=== PATIENT | male | born 1950 | race African-American/Black ===

== ENCOUNTER 2020-04-05 11:39 | Inpatient (IN) | payer MEDICARE, MEDICAID ==
[~2020-04-05] VITALS: Ht 188 cm; Wt 103.0 kg
--- NOTE | 2020-04-05 14:30 | NUR ---
NURSE NOTES: Received patient from admitting. Patient is direct admit from home. Belongings list completed. Patient has $71 that he declined to put in safe. VSS. On room air, no signs of distress or labored breathing. IV inserted, saline locked. Bed in lowest position with call light in reach. Will notify MD of patient's arrival and receive orders.
[2020-04-05 15:02] VITALS: BP 137/90
--- NOTE | 2020-04-05 15:46 | NUR ---
NURSE NOTES: Received orders for Dr. Guadarrama. Will carry out.
--- NOTE | 2020-04-05 15:48 | NUR ---
CASE MANAGEMENT: NOTE CM ATTEMPTED TO PERFORM REVIEW. INSUFFICIENT INFO AVAILABLE AT THIS TIME
--- NOTE | 2020-04-05 15:55 | Consultation ---
History of Present Illness General Date patient seen: Apr 05, 2020 Present Illness HPI 69 year old male with extensive tobacco history who is currently still smoking presented with left neck pain and discomfort. states at first that for a few days he noted left neck swelling but when prompted he extends timeline past a few months. states he was told by pcp to have it evaluated but has decided not to until recently when it became more uncomfortable. no n/v/f/c. voice changes noted for months. pain cramping left neck. no sob. surgery called to evaluate. Allergies: Coded Allergies: No Known Allergies (Unverified , 04/05/20) Patient History History Provided By: Patient, Medical Record, PMD Healthcare decision maker N Resuscitation status Advanced Directive on File Past Medical/Surgical History Past Medical/Surgical History: (1) Mass of left side of neck Review of Systems Review of Symptoms General ROS: no weight loss or fever Psychological ROS: no depression or mood changes, no memory loss Ophthalmic ROS: no visual changes or eye irritation ENT ROS: no nasal congestion, hearing loss, dizziness Allergy and Immunology ROS: no allergic symptoms or urticaria Hematological and Lymphatic ROS: no swollen glands, unusual bleeding or bruising Endocrine ROS: no polyuria, polydipsia, weight changes, temperature intolerance Respiratory ROS: no cough, shortness of breath, or wheezing Cardiovascular ROS: no chest pain or dyspnea on exertion Gastrointestinal ROS: denies abdominal pain, bright red blood in stool. Musculoskeletal ROS: no myalgias or arthralgias Neurological ROS: no TIA or stroke symptoms Dermatological ROS: no new or changing skin lesions, rashes or pruritis Physical Exam Physical Exam General appearance: alert, cooperative, no distress, appears stated age Head: Normocephalic, without obvious abnormality, atraumatic Eyes: conjunctivae/corneas clear. PERRL, EOM's intact. Fundi benign Throat: Lips, mucosa, and tongue normal. Teeth and gums normal Neck: left neck mobile large almost 10cm x 10cm tender, hard. trachea deviated to the right of midline Lungs: clear to auscultation bilaterally Heart: regular rate and rhythm, S1, S2 normal, no murmur, click, rub or gallop Abdomen: soft, non-tender. Bowel sounds normal. No masses, no organomegaly Extremities: extremities normal, atraumatic, no cyanosis or edema Pulses: 2+ and symmetric Skin: Skin color, texture, turgor normal. No rashes or lesions Neurologic: Grossly normal Last 24 Hour Vital Signs Date Time Temp Pulse Resp B/P (MAP) Pulse Ox O2 Delivery O2 Flow Rate FiO2 04/05/20 15:02 98.0 86 20 137/90 (106) 96 Assessment/Plan Problem List: (1) Mass of left side of neck Assessment & Plan: left neck mobile large almost 10cm x 10cm tender, hard. trachea deviated to the right of midline extensive tobacco history and current has noted for months but has not seen care yet now larger and more uncomfortable unfortunately high suspicion for cancer > abscess or infection recommend CT neck respiratory stable currently CT chest as well okay for diet rx as written will follow with recs thank you ICD Codes: R22.1 - Localized swelling, mass and lump, neck SNOMED: [id number] Jah Fraser Apr 05, 2020 15:55
[2020-04-05 16:00] VITALS: BP 158/90
[2020-04-05] MEDS ORDERED: Omnipaque 350 100ml vial INJ PRN (16:00)
[2020-04-05] MEDS ORDERED: LORazepam 1mg tab ORAL PRN (16:00)
[2020-04-05] MEDS ORDERED: Zolpidem 5mg tab ORAL PRN (16:00)
[2020-04-05] MEDS ORDERED: Mylanta II UD 30ml ORAL PRN (16:00)
[2020-04-05] MEDS ORDERED: Omnipaque-300 100ml vial INJ SCH (16:00)
[2020-04-05] MEDS ORDERED: Milk of Magnesia 30ml Ud ORAL PRN (16:00)
[2020-04-05] MEDS ORDERED: Nitroglycerin Subl 0.4mg tab SL PRN (16:00)
[2020-04-05] MEDS ORDERED: DiphenhydrAMINE 25mg Tab ORAL PRN (16:00)
[2020-04-05] MEDS ORDERED: Morphine Sulfate 2mg/ml Inj(IV/IM USE ONLY) IVP PRN (16:00)
--- NOTE | 2020-04-05 16:37 | NUR ---
HAND-OFF: Report given to DOMENIC Sanabria. Patient stable.
--- NOTE | 2020-04-05 16:40 | NUR ---
NURSE NOTES: Received report from Connie RN. Patient is currently sleeping, in no apparent distress, RR even and unlabored. Side rails upx2, bed low and locked, call light within reach.
[2020-04-05 18:05] LABS: BASOPHILS % (AUTO) 1.2 % (0.0-2.0); EOSINOPHILS % (AUTO) 0.8 % (0.0-3.0); HEMATOCRIT 44.8 % (42.0-52.0); HEMOGLOBIN 13.9 G/DL (14.2-18.0); LYMPHOCYTES % (AUTO) 27.5 % (20.0-45.0); MEAN CORPUSCULAR VOLUME 92 FL (80-99); MONOCYTES % (AUTO) 10.1 % (1.0-10.0); NEUTROPHILS % (AUTO) 60.4 % (45.0-75.0); PLATELET COUNT 139 K/UL (150-450); RED CELL DISTRIBUTION WIDTH 15.2 % (11.6-14.8); WHITE BLOOD COUNT 6.3 K/UL (4.8-10.8)
[2020-04-05 18:09] LABS: INR 1.1 (0.9-1.1)
[2020-04-05 18:26] LABS: ANION GAP 7 mmol/L (5-15); BLOOD UREA NITROGEN 15 mg/dL (7-18); CALCIUM 10.9 MG/DL (8.5-10.1); CARBON DIOXIDE 29 MMOL/L (21-32); CHLORIDE 106 MMOL/L (98-107); CHOLESTEROL 140 MG/DL (< 200); CREATININE 1.1 MG/DL (0.55-1.30); HDL CHOLESTEROL 41 MG/DL (40-60); POTASSIUM 3.6 MMOL/L (3.5-5.1); SODIUM 142 MMOL/L (136-145); TRIGLYCERIDES 145 MG/DL (30-150)
--- NOTE | 2020-04-05 19:30 | NUR ---
HAND-OFF: Report given to Petra SHETH. Patient is in stable condition.
--- NOTE | 2020-04-05 19:45 | NUR ---
Pt awake alert and oriented x4 able to make needs known. Pt on room air no acute distress noted. Pt able to make needs known. IV to RFA infusing NS@ 50 ml/hr. Pt able to void with no difficulty. bed in lowest position call light in reach will continue to monitor for treatment and care
[2020-04-05 20:00] VITALS: BP 180/98
--- NOTE | 2020-04-05 20:16 | NUR ---
Pt b/p 180/90 pt c/o of headache and pain to left side of the neck. denies SOB, CP. dizziness or feeling light headed. notified with new orders.
[2020-04-05] MEDS ORDERED: HYDROcodone/Acetamin 10/325 tab ORAL PRN ×2 (20:30→20:45)
[2020-04-05] MEDS: Docusate 100mg cap ORAL SCH (20:53)
[2020-04-05] MEDS: Losartan 50mg tab ORAL SCH (20:59)
[2020-04-05] MEDS: Enoxaparin 40mg Inj SUBQ SCH (21:06)
[2020-04-05] MEDS: NovoLOG Insulin Flexpen SUBQ SCH (22:00)
[2020-04-06] VITALS: BP 179/91
[2020-04-06 04:00] VITALS: BP 155/69
[2020-04-06] MEDS: NovoLOG Insulin Flexpen SUBQ SCH ×4 (06:13→21:00)
--- NOTE | 2020-04-06 06:45 | Consultation ---
DATE OF CONSULTATION: 04/05/2020 CARDIOLOGY CONSULTATION CONSULTING PHYSICIAN: Leighton Nunez MD. REQUESTING PHYSICIAN: Pepe Guadarrama MD. REASON FOR CONSULTATION: Left neck mass, preoperative evaluation for possible excision. HISTORY OF PRESENT ILLNESS: This is a 69-year-old male has a several months of increasing left neck pain and discomfort with swelling and was noted to have a mass by Dr. Guadarrama. He has been increasingly short of breath and congested, hospitalization has been initiated. Possible excision of the mass is planned. I have been asked to address perioperative risk. PAST MEDICAL HISTORY: Hypertensive heart disease, degenerative disk disease, COPD, obesity, and hyperlipidemia. ALLERGIES: None. MEDICATIONS: Reviewed. SOCIAL HISTORY: Greater than 22-bjjj-cexy smoker, actively smokes at this time. Social alcohol. No substance abuse. FAMILY HISTORY: Noncontributory. REVIEW OF SYSTEMS: No fevers or chills. No history of COVID-19 exposure. No exertional chest pain. No history of flow-limiting coronary disease. No history of cardiac arrhythmias. His most recent echocardiogram as an outpatient revealed normal ejection fraction with concentric hypertrophy. There is no change in bowel habits. No history of seizure or stroke. No history of diabetes or thyroid impairment. PHYSICAL EXAMINATION: VITAL SIGNS: Blood pressure 180/98, heart rate 83, respiratory rate 24, afebrile. HEENT: Conjunctivae are pink. Oropharynx clear. Mucous membranes moist. NECK: Jugular venous pressure difficult to assess. Supple with decreased range of motion. Palpable mass approximately 10 x 10 cm on the left, firm and mobile with tracheal deviation to the right. LUNGS: With diminished breath sounds. No wheezing. CARDIAC: Regular rhythm and rate. Normal S1, S2 with a fourth heart sound. ABDOMEN: Soft, nontender. EXTREMITIES: No edema. NEUROLOGIC: Nonfocal. LABORATORY AND DIAGNOSTIC DATA: Laboratories reviewed. EKG pending. IMPRESSION: 1. Neck mass, rule out abscess versus cancer. 2. Nicotine abuse. 3. COPD. 4. Hypertensive urgency. PLAN: CT of the neck and chest. Up titration of anti-hypertensive regimen. DVT prophylaxis. Bronchodilators p.r.n. Nicotine patch. Leighton Nunez M.D. DR: BRITNEY JOB#: [id number] CC:
[2020-04-06 07:17] LABS: ALANINE AMINOTRANSFERASE 10 U/L (12-78); ALBUMIN 3.4 G/DL (3.4-5.0); ALBUMIN/GLOBULIN RATIO 1.1 (1.0-2.7); ALKALINE PHOSPHATASE 82 U/L (46-116); ANION GAP 8 mmol/L (5-15); ASPARTATE AMINO TRANSFERASE 14 U/L (15-37); BILIRUBIN,TOTAL 0.6 MG/DL (0.2-1.0); BLOOD UREA NITROGEN 13 mg/dL (7-18); CALCIUM 10.3 MG/DL (8.5-10.1); CARBON DIOXIDE 28 MMOL/L (21-32); CHLORIDE 107 MMOL/L (98-107); CREATININE 0.8 MG/DL (0.55-1.30); POTASSIUM 3.8 MMOL/L (3.5-5.1); SODIUM 143 MMOL/L (136-145)
--- NOTE | 2020-04-06 07:39 | NUR ---
NURSE NOTES: Received report from DOMENIC Lambert. Patient A&Ox4. On nasal cannula 2L/min. No signs of distress or labored breathing. IV intact, patent, and infusing IV fluids. Bed in lowest position with call light in reach. Will continue with plan of care.
--- NOTE | 2020-04-06 07:44 | NUR ---
Nurses notes Report to Connie SHETH
[2020-04-06 08:00] VITALS: BP 152/89
--- NOTE | 2020-04-06 09:36 | Diagnostic Imaging Report ---
EXAM: CT Chest With Intravenous Contrast CLINICAL HISTORY: ABSCESS TECHNIQUE: Axial computed tomography images of the chest with intravenous contrast. CTDI is 23.7 mGy and DLP is 995.3 mGy-cm. One or more of the following dose reduction techniques were used: automated exposure control, adjustment of the mA and/or kV according to patient size, use of iterative reconstruction technique. COMPARISON: No relevant prior studies available. FINDINGS: Large necrotic left neck mass will be described in greater detail on the dedicated neck CT report. Minimal stranding of the upper mediastinum. Slight extension to the upper mediastinal prevascular space. Question whether this is a known malignancy. There are multiple bilateral pulmonary nodules concerning for metastatic disease. Largest nodules in the right middle and lower lobe measuring 1.2 cm on series 7, image 45. Largest left lung nodule in the left upper lobe measuring 1.1 cm on series 7, image 31. Left lung consolidation. Component of atelectasis as well. Correlate for symptoms of pneumonia. No clear hilar mass to suggest postobstructive phenomena. Trace left pleural effusion. There is also trace pericardial fluid as well as coronary atherosclerosis. No pneumothorax. Suspect a 1.4 cm right adrenal nodule, which would also be concerning for metastasis, though assessment of the adrenals is limited by motion. Cholelithiasis. Multilevel thoracic spondylosis. Lytic cervical spine lesions will also be described in the neck CT report. IMPRESSION: Necrotic left neck mass extending into the upper mediastinum. Please see separately dictated neck CT report for other details, including cervical vertebral involvement. Bilateral pulmonary nodules are suspicious for metastases. Would also question a right adrenal nodule (potential metastasis), but limited assessment due to motion. LLL consolidation suggesting pneumonia. This is not clearly postobstructive. CAD.
[2020-04-06] MEDS: Losartan 50mg tab ORAL SCH (09:48)
--- NOTE | 2020-04-06 09:48 | Diagnostic Imaging Report ---
EXAM: CT Neck With Intravenous Contrast CLINICAL HISTORY: ABSCESS TECHNIQUE: Axial computed tomographic images of the neck with intravenous contrast. CTDI is 23.7 mGy and DLP is 995.3 mGy-cm. One or more of the following dose reduction techniques were used: automated exposure control, adjustment of the mA and/or kV according to patient size, use of iterative reconstruction technique. COMPARISON: No relevant prior studies available. FINDINGS: There is a large mass to the left mid and lower neck and supraclavicular region. Somewhat poorly defined, but measures at least 9 x 8 x 9 cm in greatest transverse, anteroposterior, and craniocaudal dimensions respectively. Internal heterogeneity/necrosis is better illustrated on the chest CT due to the phase of enhancement on that exam. The mass anteriorly displaces the sternocleidomastoid, appearing to infiltrate the muscle inferiorly (again better seen on the chest CT). The common carotid artery is displaced anteriorly and medially, but the caliber of the vessel does not appear compromised. The internal jugular vein is engulfed by the mass, not well-seen. The airway is displaced to right, but demonstrates no significant narrowing/compression. The mass invades the leftward aspects of the C4 and C5 vertebral bodies with destruction of left transverse processes and presumed extension into neural foramina. Correlate for radiculopathy. Behavior of this mass is consistent with malignancy. Presence of pulmonary nodules, presumably metastases, also would indicate malignancy. Left larger than right mastoid effusions. These are not clearly attributable to obstruction by the mass. There are satellite left cervical lymph nodes, concerning for tumor infiltration, however. Carotid atherosclerosis. Dural calcifications overlying visualized portions of the left cerebral hemisphere. Mild mucosal thickening to the right maxillary sinus. Chronic-appearing deformity of the right orbital floor, presumably related to old trauma. Multilevel cervical spondylosis. IMPRESSION: 9 cm left neck mass invading C4 and C5 vertebra, consistent with malignancy. Correlate for radiculopathy as the neural foramina are invaded. Rightward airway displacement without significant narrowing. Engulfment of the left internal jugular vein, likely occluded. Pulmonary nodules are highly suspicious for metastases. Please see separately dictated chest CT report.
[2020-04-06] MEDS: Docusate 100mg cap ORAL SCH ×2 (09:49→21:28)
[2020-04-06] MEDS: Morphine Sulfate 2mg/ml Inj(IV/IM USE ONLY) IVP PRN ×2 (09:57→16:37)
[2020-04-06 12:00] VITALS: BP 155/90
--- NOTE | 2020-04-06 13:59 | Surgery Progress Note ---
Surgery Progress Note Subjective Additional Comments no acute events CT noted comfortable no complaints Objective Last 24 Hour Vital Signs Date Time Temp Pulse Resp B/P (MAP) Pulse Ox O2 Delivery O2 Flow Rate FiO2 04/06/20 09:48 77 152/89 04/06/20 09:48 152/89 04/06/20 08:00 98.3 77 18 152/89 (110) 97 04/06/20 04:00 98.6 88 22 155/69 (97) 97 04/06/20 01:34 179/91 04/06/20 01:33 83 179/91 04/06/20 00:00 97.9 76 22 179/91 (120) 96 04/05/20 21:00 Room Air 04/05/20 20:59 180/98 04/05/20 20:55 180/98 04/05/20 20:00 97.9 83 24 180/98 (125) 94 04/05/20 16:00 97.9 72 20 158/90 (112) 92 04/05/20 15:02 Room Air 04/05/20 15:02 98.0 86 20 137/90 (106) 96 I&O Intake and Output 04/05/20 04/06/20 19:00 07:00 Intake Total 300 ml Output Total 300 ml Balance 300 ml -300 ml Intake Oral 200 ml IV Total 100 ml Output Urine Total 300 ml # Voids 1 1 Dressing: other Wound: other Drains: other Cardiovascular: RSR Respiratory: clear Abdomen: soft, non-tender, present bowel sounds Extremities: no edema, no tenderness, no cyanosis Laboratory Tests Test 04/05/20 17:10 04/06/20 05:30 04/06/20 08:17 White Blood Count 6.3 K/UL (4.8-10.8) Red Blood Count 4.90 M/UL (4.70-6.10) Hemoglobin 13.9 G/DL (14.2-18.0) L Hematocrit 44.8 % (42.0-52.0) Mean Corpuscular Volume 92 FL (80-99) Mean Corpuscular Hemoglobin 28.4 PG (27.0-31.0) Mean Corpuscular Hemoglobin Concent 31.0 G/DL (32.0-36.0) L Red Cell Distribution Width 15.2 % (11.6-14.8) H Platelet Count 139 K/UL (150-450) L Mean Platelet Volume 12.7 FL (6.5-10.1) H Neutrophils (%) (Auto) 60.4 % (45.0-75.0) Lymphocytes (%) (Auto) 27.5 % (20.0-45.0) Monocytes (%) (Auto) 10.1 % (1.0-10.0) H Eosinophils (%) (Auto) 0.8 % (0.0-3.0) Basophils (%) (Auto) 1.2 % (0.0-2.0) Prothrombin Time 11.8 SEC (9.30-11.50) H Prothromb Time International Ratio 1.1 (0.9-1.1) Activated Partial Thromboplast Time 28 SEC (23-33) Sodium Level 142 MMOL/L (136-145) 143 MMOL/L (136-145) Potassium Level 3.6 MMOL/L (3.5-5.1) 3.8 MMOL/L (3.5-5.1) Chloride Level 106 MMOL/L (98-107) 107 MMOL/L (98-107) Carbon Dioxide Level 29 MMOL/L (21-32) 28 MMOL/L (21-32) Anion Gap 7 mmol/L (5-15) 8 mmol/L (5-15) Blood Urea Nitrogen 15 mg/dL (7-18) 13 mg/dL (7-18) Creatinine 1.1 MG/DL (0.55-1.30) 0.8 MG/DL (0.55-1.30) Estimat Glomerular Filtration Rate > 60 mL/min (>60) > 60 mL/min (>60) Glucose Level 109 MG/DL (74-106) H 124 MG/DL (74-106) H Hemoglobin A1c 7.7 % (4.3-6.0) H Calcium Level 10.9 MG/DL (8.5-10.1) H 10.3 MG/DL (8.5-10.1) H Pro-B-Type Natriuretic Peptide 36 pg/mL (0-125) Triglycerides Level 145 MG/DL (30-150) Cholesterol Level 140 MG/DL (< 200) LDL Cholesterol 69 mg/dL (<100) HDL Cholesterol 41 MG/DL (40-60) Cholesterol/HDL Ratio 3.4 (3.3-4.4) Thyroid Stimulating Hormone (TSH) 0.484 uiU/mL (0.358-3.740) Total Bilirubin 0.6 MG/DL (0.2-1.0) Aspartate Amino Transf (AST/SGOT) 14 U/L (15-37) L Alanine Aminotransferase (ALT/SGPT) 10 U/L (12-78) L Alkaline Phosphatase 82 U/L (46-116) Total Protein 6.5 G/DL (6.4-8.2) Albumin 3.4 G/DL (3.4-5.0) Globulin 3.1 g/dL Albumin/Globulin Ratio 1.1 (1.0-2.7) Arterial Blood pH 7.367 (7.350-7.450) Arterial Blood Partial Pressure CO2 49.4 mmHg (35.0-45.0) H Arterial Blood Partial Pressure O2 87.8 mmHg (75.0-100.0) Arterial Blood HCO3 27.7 mmol/L (22.0-26.0) H Arterial Blood Oxygen Saturation 96.4 % (95-100) Arterial Blood Base Excess 1.6 (-2-2) Rob Test Positive Plan Problems: (1) Mass of left side of neck Assessment & Plan: left neck mobile large almost 10cm x 10cm tender, hard. trachea deviated to the right of midline extensive tobacco history and current has noted for months but has not seen care yet now larger and more uncomfortable unfortunately high suspicion for cancer > abscess or infection recommend CT neck respiratory stable currently CT chest as well okay for diet rx as written will follow with recs thank you metastatic cancer will discuss with pcp and patient Large necrotic left neck mass will be described in greater detail on the dedicated neck CT report. Minimal stranding of the upper mediastinum. Slight extension to the upper mediastinal prevascular space. Question whether this is a known malignancy. There are multiple bilateral pulmonary nodules concerning for metastatic disease. Largest nodules in the right middle and lower lobe measuring 1.2 cm on series 7, image 45. Largest left lung nodule in the left upper lobe measuring 1.1 cm on series 7, image 31. Left lung consolidation. Component of atelectasis as well. Correlate for symptoms of pneumonia. No clear hilar mass to suggest postobstructive phenomena. Trace left pleural effusion. There is also trace pericardial fluid as well as coronary atherosclerosis. No pneumothorax. Suspect a 1.4 cm right adrenal nodule, which would also be concerning for metastasis, though assessment of the adrenals is limited by motion. Cholelithiasis. Multilevel thoracic spondylosis. Lytic cervical spine lesions will also be described in the neck CT report. IMPRESSION: Necrotic left neck mass extending into the upper mediastinum. Please see separately dictated neck CT report for other details, including cervical vertebral involvement. Bilateral pulmonary nodules are suspicious for metastases. Would also question a right adrenal nodule (potential metastasis), but limited assessment due to motion. LLL consolidation suggesting pneumonia. This is not clearly postobstructive. There is a large mass to the left mid and lower neck and supraclavicular region. Somewhat poorly defined, but measures at least 9 x 8 x 9 cm in greatest transverse, anteroposterior, and craniocaudal dimensions respectively. Internal heterogeneity/necrosis is better illustrated on the chest CT due to the phase of enhancement on that exam. The mass anteriorly displaces the sternocleidomastoid, appearing to infiltrate the muscle inferiorly (again better seen on the chest CT). The common carotid artery is displaced anteriorly and medially, but the caliber of the vessel does not appear compromised. The internal jugular vein is engulfed by the mass, not well-seen. The airway is displaced to right, but demonstrates no significant narrowing/compression. The mass invades the leftward aspects of the C4 and C5 vertebral bodies with destruction of left transverse processes and presumed extension into neural foramina. Correlate for radiculopathy. Behavior of this mass is consistent with malignancy. Presence of pulmonary nodules, presumably metastases, also would indicate malignancy. Left larger than right mastoid effusions. These are not clearly attributable to obstruction by the mass. There are satellite left cervical lymph nodes, concerning for tumor infiltration, however. Carotid atherosclerosis. Dural calcifications overlying visualized portions of the left cerebral hemisphere. Mild mucosal thickening to the right maxillary sinus. Chronic-appearing deformity of the right orbital floor, presumably related to old trauma. Multilevel cervical spondylosis. IMPRESSION: 9 cm left neck mass invading C4 and C5 vertebra, consistent with malignancy. Correlate for radiculopathy as the neural foramina are invaded. Rightward airway displacement without significant narrowing. Engulfment of the left internal jugular vein, likely occluded. Pulmonary nodules are highly suspicious for metastases. Please see separately dictated chest CT report. Jah Fraser 6, 2020 13:59
--- NOTE | 2020-04-06 14:48 | NUR ---
CASE MANAGEMENT:INITIAL REVIEW 69 YR OLD MALE FROM HOME FOR DIRECT ADMIT CC;NECK PAIN. NECK SWELLING. SI;LEFT NECK MASS. PRE-OP EVAL FOR POSSIBLE EXCISION. 98.0 86 24 180/98 92% ON RA IS;LOVENOX SUBQ D5W IVF ADMITTED TO MED SURG MED SURG STATUS DCP;FROM HOME
[2020-04-06 16:00] VITALS: BP 171/84
--- NOTE | 2020-04-06 16:30 | Consultation ---
DATE OF CONSULTATION: 04/06/2020 PULMONARY CONSULTATION CONSULTING PHYSICIAN: Sarthak Colin MD. REASON FOR CONSULTATION: Shortness of breath, preoperative clearance, COPD. HISTORY OF PRESENT ILLNESS: This is a 69-year-old male with an increasing left neck mass. The patient with increasing shortness of breath and congestion. The patient with possible excision planned. The patient does have underlying history of COPD and I was asked to follow up pre and postoperatively to assist with pulmonary clearance and management. Currently, the patient does complain of mild shortness of breath, but no significant chest tightness. The patient denies sputum production at this time. The patient's medications reviewed and reconciled. The patient is on DVT prophylaxis at present, pain management reviewed as well. PAST MEDICAL HISTORY: Notable for hypertension, hypertensive heart disease, COPD, obesity, hyperlipidemia. MEDICATIONS: Reviewed. ALLERGIES: Reviewed. SOCIAL HISTORY: Greater than 34-xnig-wdsb history. The patient continues to smoke currently. Occasional alcohol use. No substance abuse. No cocaine. FAMILY HISTORY: Noncontributory. REVIEW OF SYSTEMS: All 10 points reviewed and otherwise as above. PHYSICAL EXAMINATION: GENERAL: A well-developed male, comfortable, in no significant distress. VITAL SIGNS: Elevated blood pressure 155/69, pulse 88, respirations 22, sats 97%, temperature 98.6. HEENT: Fairly negative. The patient's extraocular movements are grossly intact. NECK: Supple. No adenopathy. LUNGS: With good air entry and symmetric. CARDIAC: S1, S2. Regular rate and rhythm without murmurs, rubs, or gallops. ABDOMEN: Soft, nontender, nondistended. EXTREMITIES: No cyanosis, clubbing, or edema. NEUROLOGIC: Grossly nonfocal. LABORATORY DATA: Reviewed. CBC fairly negative. Platelets are reduced 139,000. Chemistries noted essentially negative including liver enzymes and cholesterol as well as TSH. IMPRESSION: 1. COPD, clinically stable. 2. Hypertension. 3. Neck mass. 4. Hyperglycemia. 5. Pain. RECOMMENDATION: We will obtain x-ray and an arterial blood gas to assess for acid-base exchange. We will continue to monitor albuterol p.r.n. and we will definitely monitor airway postoperatively, reassess clinically and recommend further and will assist with postoperative care once surgery is planned. Sarthak Colin M.D. DR: RADHA JOB#: [id number] CC:
--- NOTE | 2020-04-06 18:00 | History and Physical Report ---
DATE OF ADMISSION: 04/05/2020 CHIEF COMPLAINT: Left neck mass, shortness of breath. HISTORY OF PRESENT ILLNESS: The patient is a 69-year-old male. He has history of COPD, hypertension, and diabetes. He initially presented to the office several weeks ago for a routine followup. On exam, he was noted to have a left neck mass. The patient was instructed to go to the emergency room and a direct admission bed was arranged, but the patient declined to go. Yesterday, he was agreeable for admission for workup of his mass. In addition, he had worsening shortness of breath and wheezing consistent with COPD exacerbation. He is now directly admitted for further evaluation and care. PAST MEDICAL HISTORY: As above. PAST SURGICAL HISTORY: None. CURRENT MEDICATIONS: Reconciled and reviewed. ALLERGIES: None. FAMILY HISTORY: None. SOCIAL HISTORY: The patient is a long-term smoker and continues to smoke. No alcohol. No drugs. REVIEW OF SYSTEMS: GENERAL: No fevers or chills. HEENT: No headaches or visual changes. CARDIOPULMONARY: No chest pain. Positive shortness of breath and wheezing. GASTROINTESTINAL: No nausea or vomiting. GENITOURINARY: No urgency or frequency. MUSCULOSKELETAL: No joint pain or swelling. NEUROLOGIC: No evidence of seizures. PHYSICAL EXAMINATION: VITAL SIGNS: Temperature 98, pulse 76, respirations 22, blood pressure 179/81. GENERAL: The patient is well developed, in no apparent distress. The patient is awake, alert, and oriented x4. HEENT: The pupils are equal, round, and reactive to light. Oropharynx is clear. Mucous membranes are moist. There is a slightly larger than a golf ball-sized mass in the left submandibular region on the anterior neck. Mass is hard and is nontender. HEART: Regular rate and rhythm without murmurs, rubs, or gallops. LUNGS: Clear to auscultation bilaterally. ABDOMEN: Soft, nontender, and nondistended. EXTREMITIES: Without clubbing, cyanosis, or edema. LABORATORY AND DIAGNOSTIC DATA: White count 6, hemoglobin 13, hematocrit 44. Coags are normal. Platelet count was 139,000. Sodium 142, potassium 3.6, BUN 15, creatinine 1.1. A1c was 7.7. TSH was 0.48. Imaging is pending. ASSESSMENT: This is a 69-year-old male with history of hypertension, COPD, diabetes, admitted with a left neck mass as well as a COPD exacerbation. PLAN: CT scan of the head, neck, and chest with contrast. Cardiology evaluation for assistance with blood pressure management for possible preop clearance in case surgery is needed. Surgical consultation. Hematology/Oncology consultation will also be obtained. The patient will be continued on supplemental oxygen, breathing treatments, and intravenous steroids for COPD exacerbation. Plan of care has been discussed at length with the patient. He is in agreement. Pepe Guadarrama M.D. DR: Dalia JOB#: [id number] CC:
--- NOTE | 2020-04-06 19:05 | NUR ---
NURSE NOTES: Received report from tierra sow. patient is on bed, awake and verbally responsive. denies any pain or discomfort. cannula at 2lpm. no sob. with iv on the right forearm running NS @50ml/hr. uses urinal. reiterated to call and ask for assistance by using call light. call light and light button within easy reach. bed locked and in lowest position. bed alarm on. needs attended and met. provided rest and comfort.will continue plan of care.
--- NOTE | 2020-04-06 19:33 | NUR ---
HAND-OFF: Report given to Mikayla Velasquez RN. Rounds done, patient stable.
[2020-04-06 20:00] VITALS: BP 187/91
[2020-04-06] MEDS: Enoxaparin 40mg Inj SUBQ SCH (21:28)
--- NOTE | 2020-04-06 21:40 | NUR ---
NURSE NOTES: BLOOD PRESSURE OF 187/91 MMHG. NO C/O DIZZINESS OR HEADACHE. CLONIDINE 0.1MG GIVEN ORDERED FOR SBP>160. CHARGE NURSE MADE AWARE.
[2020-04-07] VITALS: BP 165/90
--- NOTE | 2020-04-07 01:00 | Progress Note ---
DATE: 04/06/2020 CARDIOLOGY PROGRESS NOTE SUBJECTIVE: The patient without chest pain or shortness of breath. Neck discomfort persists. No noted stridor per staff. EKG is pending. OBJECTIVE: VITAL SIGNS: Blood pressure 171/84, heart rate 67, respiratory rate 18, and afebrile. NECK: Tracheal deviation unchanged. Palpable neck mass without change. LUNGS: Clear. No wheezing. CARDIAC: Regular. Normal S1, S2 with a fourth heart sound. ABDOMEN: Soft. EXTREMITIES: No edema. LABORATORY AND DIAGNOSTIC DATA: Chemistry panel within normal limits. Glucose 124. Liver function normal. Imaging studies of the neck reveal left neck mass invading cervical vertebra and neural foramina within engulfment of left internal jugular vein, and pulmonary nodules are noted as well. IMPRESSION: Metastatic carcinoma, suspected. PLAN: 1. May need transfer to higher level of care for surgical and diagnostic intervention in view of involvement of jugular vein and cervical disks. 2. Review EKG. 3. Optimize antihypertensive therapy. 4. Continue respiratory hygiene. 5. DVT prophylaxis. 6. We will discuss with consulting staff. Leighton Nunez M.D. DR: Kathy JOB#: [id number] CC:
[2020-04-07 04:00] VITALS: BP 169/89
[2020-04-07] MEDS: Morphine Sulfate 2mg/ml Inj(IV/IM USE ONLY) IVP PRN (04:31)
--- NOTE | 2020-04-07 05:30 | NUR ---
NURSE NOTES: BLOOD PRESSURE OF 169/89 MMHG. NO C/O DIZZINESS OR HEADACHE. CLONIDINE 0.1MG GIVEN ORDERED FOR SBP>160. CHARGE NURSE MADE AWARE.
[2020-04-07] MEDS: NovoLOG Insulin Flexpen SUBQ SCH (05:43)
[2020-04-07 05:59] LABS: BASOPHILS % (AUTO) 0.7 % (0.0-2.0); HEMOGLOBIN 13.6 G/DL (14.2-18.0); LYMPHOCYTES % (AUTO) 24.7 % (20.0-45.0); MEAN CORPUSCULAR VOLUME 85 FL (80-99); MONOCYTES % (AUTO) 10.9 % (1.0-10.0); NEUTROPHILS % (AUTO) 62.7 % (45.0-75.0); PLATELET COUNT 148 K/UL (150-450); RED BLOOD COUNT 4.82 M/UL (4.70-6.10); RED CELL DISTRIBUTION WIDTH 13.1 % (11.6-14.8)
[2020-04-07 06:13] LABS: ANION GAP 6 mmol/L (5-15); BLOOD UREA NITROGEN 11 mg/dL (7-18); CALCIUM 10.3 MG/DL (8.5-10.1); CARBON DIOXIDE 29 MMOL/L (21-32); CHLORIDE 107 MMOL/L (98-107); CREATININE 0.7 MG/DL (0.55-1.30); POTASSIUM 3.9 MMOL/L (3.5-5.1); SODIUM 142 MMOL/L (136-145)
--- NOTE | 2020-04-07 07:22 | NUR ---
HAND-OFF: Report given to tierra espinoza.patient is awake taking breakfast. no sob. plan of care endorsed.
--- NOTE | 2020-04-07 07:30 | NUR ---
NURSE NOTES: Patient is sitting on edge of bed awake and able to verbalize needs. Stable. Denies pain or SOB. Patient instructed to use call light for assistance, verbalized understanding. All safety measures provided, call light within reach. Will continue to monitor.
[2020-04-07 08:00] VITALS: BP 163/78
[2020-04-07 08:42] VITALS: BP 163/78
[2020-04-07] MEDS: Docusate 100mg cap ORAL SCH (08:42)
[2020-04-07] MEDS: Losartan 50mg tab ORAL SCH (08:42)
--- NOTE | 2020-04-07 08:59 | Pulmonology Progress Note ---
Subjective Allergies: Coded Allergies: No Known Allergies (Unverified , 04/05/20) Subjective CT noted likely cancer with mets Objective Last 24 Hour Vital Signs Date Time Temp Pulse Resp B/P (MAP) Pulse Ox O2 Delivery O2 Flow Rate FiO2 04/07/20 08:42 82 163/78 04/07/20 08:42 163/78 04/07/20 05:29 169/89 04/07/20 05:01 98.1 04/07/20 04:00 98.2 68 18 169/89 (115) 98 04/07/20 00:00 98.1 63 18 165/90 (115) 97 04/06/20 21:44 187/91 04/06/20 21:00 Nasal Cannula 2.0 04/06/20 20:00 97.8 61 18 187/91 (123) 97 04/06/20 18:06 67 171/84 04/06/20 16:37 171/84 04/06/20 16:00 98.2 67 18 171/84 (113) 95 04/06/20 12:00 98.6 69 18 155/90 (111) 95 04/06/20 09:48 77 152/89 04/06/20 09:48 152/89 04/06/20 09:00 Nasal Cannula 2.0 Intake and Output 04/06/20 04/07/20 19:00 07:00 Intake Total 1750 ml 2050 ml Output Total 700 ml 1300 ml Balance 1050 ml 750 ml Intake Oral 1200 ml 1500 ml IV Total 550 ml 550 ml Output Urine Total 700 ml 1300 ml # Voids 2 4 Objective GENERAL: A well-developed male, comfortable, in no significant distress. HEENT: Fairly negative. The patient's extraocular movements are grossly intact. NECK: Supple. No adenopathy. neck mass noted LUNGS: With good air entry and symmetric. CARDIAC: S1, S2. Regular rate and rhythm without murmurs, rubs, or gallops. ABDOMEN: Soft, nontender, nondistended. EXTREMITIES: No cyanosis, clubbing, or edema. NEUROLOGIC: Grossly nonfocal. Laboratory Tests 04/07/20 05:45: White Blood Count 6.0, Red Blood Count 4.82, Hemoglobin 13.6L, Hematocrit 41.0L , Mean Corpuscular Volume 85, Mean Corpuscular Hemoglobin 28.2, Mean Corpuscular Hemoglobin Concent 33.2, Red Cell Distribution Width 13.1, Platelet Count 148L, Mean Platelet Volume 10.8H, Neutrophils (%) (Auto) 62.7, Lymphocytes (%) (Auto) 24.7, Monocytes (%) (Auto) 10.9H, Eosinophils (%) (Auto) 1.0, Basophils (%) (Auto) 0.7, Sodium Level 142, Potassium Level 3.9, Chloride Level 107, Carbon Dioxide Level 29, Anion Gap 6, Blood Urea Nitrogen 11, Creatinine 0.7, Estimat Glomerular Filtration Rate > 60, Glucose Level 143H, Calcium Level 10.3H Current Medications Medications (Trade) Dose Ordered Sig/Amanda Route PRN Reason Start Time Stop Time Status Last Admin Dose Admin Acetaminophen (Tylenol) 650 mg Q4H PRN ORAL Temp >100.5 04/05/20 16:00 05/05/20 15:59 Acetaminophen/ Hydrocodone Bitart (Kenly 10/325) 1 tab Q4H PRN ORAL moderate pain 04/05/20 20:45 04/12/20 20:29 04/05/20 20:55 Al Hydroxide/Mg Hydroxide (Mylanta II) 30 ml Q6H PRN ORAL dyspepsia 04/05/20 16:00 05/05/20 15:59 Amlodipine Besylate (Norvasc) 5 mg BID ORAL 04/06/20 09:00 05/06/20 08:59 04/07/20 08:42 Bisacodyl (Dulcolax) 10 mg HSPRN PRN RECTAL Constipation 04/05/20 16:00 07/04/20 15:59 Clonidine HCl (Catapres Tab) 0.1 mg Q4H PRN ORAL For High Blood Pressure 04/05/20 20:30 07/04/20 20:29 04/07/20 05:29 Dextrose (Dextrose 50%) 25 ml Q30M PRN IV Hypoglycemia 04/05/20 16:00 07/04/20 15:59 Dextrose (Dextrose 50%) 50 ml Q30M PRN IV Hypoglycemia 04/05/20 16:00 07/04/20 15:59 Diphenhydramine HCl (Benadryl) 25 mg Q6H PRN ORAL Itching/Pruritis 04/05/20 16:00 05/05/20 15:59 Docusate Sodium (Colace) 100 mg EVERY 12 HOURS ORAL 04/05/20 21:00 05/05/20 20:59 04/07/20 08:42 Enoxaparin Sodium (Lovenox) 40 mg QHS SUBQ 04/05/20 21:00 07/04/20 20:59 04/06/20 21:28 Famotidine (Pepcid) 40 mg DAILY ORAL 04/06/20 09:00 07/05/20 08:59 04/07/20 08:42 Insulin Aspart (NovoLOG) BEFORE MEALS AND HS SUBQ 04/05/20 22:00 07/04/20 21:59 04/07/20 05:43 Iohexol (Omnipaque 350 100ml) 100 ml NOW PRN INJ Radiology Procedure 04/05/20 16:00 04/07/20 15:55 Lorazepam (Ativan) 1 mg Q4H PRN ORAL For Anxiety 04/05/20 16:00 04/12/20 15:59 Losartan Potassium (Cozaar) 50 mg DAILY ORAL 04/05/20 20:45 05/05/20 20:44 04/07/20 08:42 Magnesium Hydroxide (Mom) 30 ml HSPRN PRN ORAL Constipation 04/05/20 16:00 05/05/20 15:59 Morphine Sulfate (Morphine Sulfate) 2 mg Q2H PRN IVP severe pain 04/05/20 20:45 04/12/20 15:59 04/07/20 04:31 Nitroglycerin (Ntg) 0.4 mg Q5M X 3 DOSES PRN SL Prn Chest Pain 04/05/20 16:00 05/05/20 15:59 Ondansetron HCl (Zofran) 4 mg Q6H PRN IVP Nausea & Vomiting 04/05/20 16:00 05/05/20 15:59 Sodium Chloride 1,000 ml @ 50 mls/hr Q20H IVLG 04/05/20 16:55 05/05/20 16:54 04/06/20 12:50 Zolpidem Tartrate (Ambien) 5 mg HSPRN PRN ORAL Insomnia 04/05/20 16:00 04/12/20 15:59 Assessment/Plan Assessment/Plan IMPRESSION: 1. COPD, clinically stable. 2. Hypertension. 3. Neck mass with lung mets 4. Hyperglycemia. 5. Pain. PLAN biopsy needed oncology evaluation respiratory arthur same monitor for airway compromise may need ENT follow up impression, plan, and exam edited and reviewed in detail care discussed with Sarthak Espinoza MD Apr 07, 2020 08:59
--- NOTE | 2020-04-07 10:28 | Diagnostic Imaging Report ---
EXAM: XR Chest, 1 View CLINICAL HISTORY: Shortness of breath TECHNIQUE: Frontal view of the chest. COMPARISON: CT chest obtained earlier the same date FINDINGS: Lungs: Note again made of left lung base consolidation concerning for pneumonia versus atelectasis. Mild elevation of the left hemidiaphragm. Linear atelectasis in the right midlung region. Pleural space: Unremarkable. The costophrenic angles are sharp. No visible pneumothorax. Heart: Unremarkable. No cardiomegaly. Mediastinum: Unremarkable. Bones/joints: Moderate to severe joint space loss in the right glenohumeral joint. Vasculature: Atherosclerotic calcifications are noted within the aortic arch. IMPRESSION: 1. Note again made of left lung base consolidation concerning for pneumonia versus atelectasis. 2. Linear atelectasis in the right midlung region. 3. Bilateral pulmonary nodules identified on CT are not as well seen on chest x-ray. 4. Mild elevation of the left hemidiaphragm.
--- NOTE | 2020-04-07 11:15 | NUR ---
NURSE NOTES: Patient discharged home as ordered. Stable. Denies pain or SOB. Patient was given thorough discharge instructions by RN, patient verbalized understanding. Patient stated that he will follow up with Dr. Guadarrama. Skin is c/d/i. No IV access. Patient was given written discharge instructions, RN went over instructions with patient. Patient has all belongings. Patient stated that he will take bus home. RN assisted patient outside without incident.
--- NOTE | 2020-04-07 18:05 | Surgery Progress Note ---
Surgery Progress Note Subjective Additional Comments care plan discussed with patient and PCP likely mets will need biopsy can do outpt 1. Note again made of left lung base consolidation concerning for pneumonia versus atelectasis. 2. Linear atelectasis in the right midlung region. 3. Bilateral pulmonary nodules identified on CT are not as well seen on chest x-ray. 4. Mild elevation of the left hemidiaphragm. Objective Last 24 Hour Vital Signs Date Time Temp Pulse Resp B/P (MAP) Pulse Ox O2 Delivery O2 Flow Rate FiO2 04/07/20 09:00 Room Air 04/07/20 08:42 82 163/78 04/07/20 08:42 163/78 04/07/20 08:00 98.5 82 20 163/78 (106) 98 04/07/20 05:29 169/89 04/07/20 05:01 98.1 04/07/20 04:00 98.2 68 18 169/89 (115) 98 04/07/20 00:00 98.1 63 18 165/90 (115) 97 04/06/20 21:44 187/91 04/06/20 21:00 Nasal Cannula 2.0 04/06/20 20:00 97.8 61 18 187/91 (123) 97 04/06/20 18:06 67 171/84 I&O Intake and Output 04/06/20 04/07/20 19:00 07:00 Intake Total 1750 ml 2050 ml Output Total 700 ml 1300 ml Balance 1050 ml 750 ml Intake Oral 1200 ml 1500 ml IV Total 550 ml 550 ml Output Urine Total 700 ml 1300 ml # Voids 2 4 Dressing: other Wound: other Drains: other Cardiovascular: RSR Respiratory: decreased breath sounds Abdomen: soft, non-tender, present bowel sounds Extremities: no edema, no tenderness, no cyanosis Laboratory Tests Test 04/07/20 05:45 White Blood Count 6.0 K/UL (4.8-10.8) Red Blood Count 4.82 M/UL (4.70-6.10) Hemoglobin 13.6 G/DL (14.2-18.0) L Hematocrit 41.0 % (42.0-52.0) L Mean Corpuscular Volume 85 FL (80-99) Mean Corpuscular Hemoglobin 28.2 PG (27.0-31.0) Mean Corpuscular Hemoglobin Concent 33.2 G/DL (32.0-36.0) Red Cell Distribution Width 13.1 % (11.6-14.8) Platelet Count 148 K/UL (150-450) L Mean Platelet Volume 10.8 FL (6.5-10.1) H Neutrophils (%) (Auto) 62.7 % (45.0-75.0) Lymphocytes (%) (Auto) 24.7 % (20.0-45.0) Monocytes (%) (Auto) 10.9 % (1.0-10.0) H Eosinophils (%) (Auto) 1.0 % (0.0-3.0) Basophils (%) (Auto) 0.7 % (0.0-2.0) Sodium Level 142 MMOL/L (136-145) Potassium Level 3.9 MMOL/L (3.5-5.1) Chloride Level 107 MMOL/L (98-107) Carbon Dioxide Level 29 MMOL/L (21-32) Anion Gap 6 mmol/L (5-15) Blood Urea Nitrogen 11 mg/dL (7-18) Creatinine 0.7 MG/DL (0.55-1.30) Estimat Glomerular Filtration Rate > 60 mL/min (>60) Glucose Level 143 MG/DL (74-106) H Calcium Level 10.3 MG/DL (8.5-10.1) H Plan Problems: (1) Mass of left side of neck Assessment & Plan: left neck mobile large almost 10cm x 10cm tender, hard. trachea deviated to the right of midline extensive tobacco history and current has noted for months but has not seen care yet now larger and more uncomfortable unfortunately high suspicion for cancer > abscess or infection recommend CT neck respiratory stable currently CT chest as well okay for diet rx as written will follow with recs thank you outpt biiopsy and onc eval metastatic cancer will discuss with pcp and patient Large necrotic left neck mass will be described in greater detail on the dedicated neck CT report. Minimal stranding of the upper mediastinum. Slight extension to the upper mediastinal prevascular space. Question whether this is a known malignancy. There are multiple bilateral pulmonary nodules concerning for metastatic disease. Largest nodules in the right middle and lower lobe measuring 1.2 cm on series 7, image 45. Largest left lung nodule in the left upper lobe measuring 1.1 cm on series 7, image 31. Left lung consolidation. Component of atelectasis as well. Correlate for symptoms of pneumonia. No clear hilar mass to suggest postobstructive phenomena. Trace left pleural effusion. There is also trace pericardial fluid as well as coronary atherosclerosis. No pneumothorax. Suspect a 1.4 cm right adrenal nodule, which would also be concerning for metastasis, though assessment of the adrenals is limited by motion. Cholelithiasis. Multilevel thoracic spondylosis. Lytic cervical spine lesions will also be described in the neck CT report. IMPRESSION: Necrotic left neck mass extending into the upper mediastinum. Please see separately dictated neck CT report for other details, including cervical vertebral involvement. Bilateral pulmonary nodules are suspicious for metastases. Would also question a right adrenal nodule (potential metastasis), but limited assessment due to motion. LLL consolidation suggesting pneumonia. This is not clearly postobstructive. There is a large mass to the left mid and lower neck and supraclavicular region. Somewhat poorly defined, but measures at least 9 x 8 x 9 cm in greatest transverse, anteroposterior, and craniocaudal dimensions respectively. Internal heterogeneity/necrosis is better illustrated on the chest CT due to the phase of enhancement on that exam. The mass anteriorly displaces the sternocleidomastoid, appearing to infiltrate the muscle inferiorly (again better seen on the chest CT). The common carotid artery is displaced anteriorly and medially, but the caliber of the vessel does not appear compromised. The internal jugular vein is engulfed by the mass, not well-seen. The airway is displaced to right, but demonstrates no significant narrowing/compression. The mass invades the leftward aspects of the C4 and C5 vertebral bodies with destruction of left transverse processes and presumed extension into neural foramina. Correlate for radiculopathy. Behavior of this mass is consistent with malignancy. Presence of pulmonary nodules, presumably metastases, also would indicate malignancy. Left larger than right mastoid effusions. These are not clearly attributable to obstruction by the mass. There are satellite left cervical lymph nodes, concerning for tumor infiltration, however. Carotid atherosclerosis. Dural calcifications overlying visualized portions of the left cerebral hemisphere. Mild mucosal thickening to the right maxillary sinus. Chronic-appearing deformity of the right orbital floor, presumably related to old trauma. Multilevel cervical spondylosis. IMPRESSION: 9 cm left neck mass invading C4 and C5 vertebra, consistent with malignancy. Correlate for radiculopathy as the neural foramina are invaded. Rightward airway displacement without significant narrowing. Engulfment of the left internal jugular vein, likely occluded. Pulmonary nodules are highly suspicious for metastases. Please see separately dictated chest CT report. Additional Comments late entry Jah Fraser Apr 07, 2020 18:05
--- NOTE | 2020-04-07 23:45 | Discharge Summary ---
DATE OF ADMISSION: 04/05/2020 DATE OF DISCHARGE: 04/07/2020 ADMISSION DIAGNOSES: 1. Shortness of breath. 2. Left neck mass. 3. Diabetes. 4. Hypertension. 5. COPD. DISCHARGE DIAGNOSES: 1. Shortness of breath. 2. Left neck mass. 3. Diabetes. 4. Hypertension. 5. COPD. 6. He has had likely malignancy in the neck. HOSPITAL COURSE: Patient is a pleasant 69-year-old male, who was admitted with complaints of left arm swelling and shortness of breath. He had a sizable neck mass noted on exam. He had a CAT scan that showed an extensive tumor involving the carotids and the spine. The results of the CAT scan were discussed with the patient. He will be discharged and readmitted to a tertiary hospital for more extensive workup at higher level of care. The patient was in agreement with this plan of care. DISCHARGE MEDICATIONS: Please see discharge medication list for discharge medications. DIET: Cardiac diabetic diet. ACTIVITIES: Ad-ayaz. FOLLOWUP: Patient will be followed up in 1 day in the office or over the phone. Pepe Guadarrama M.D. DR: DINA JOB#: [id number] CC:
--- NOTE | 2020-04-08 02:00 | Progress Note ---
DATE: 04/07/2020 CARDIOLOGY PROGRESS NOTE SUBJECTIVE: Patient has extensive signs of metastatic disease involving lung and spinal cord initiating from the left neck region. Patient will need a higher level of care. Patient's blood pressure parameters are slightly elevated. PHYSICAL EXAMINATION: VITAL SIGNS: Blood pressure 169/89, heart rate 68, respirations 18, afebrile. LUNGS: Clear. CARDIAC: Regular. Normal S1, S2 with a fourth heart sound. ABDOMEN: Soft. EXTREMITIES: No edema. IMPRESSION: 1. Likely metastatic carcinoma. 2. Hypertensive heart disease. 3. COPD. PLAN: 1. Antihypertensive therapy advanced. 2. Patient will be discharged and arrangements to be made for admission to a higher level of care for surgical intervention that will likely involve lungs and spine. 3. Discharge regimen of cardiovascular medications reviewed with patient and Dr. Guadarrama. Leighton Nnuez M.D. DR: FOREST JOB#: [id number] CC:
== END 2020-04-07 11:15 | disposition home or self-care (01) | DRG 147 ==
LOC: 3E 13:41 → EEVIPCON 13:41
DX: C76.0 Malignant neoplasm of head, face and neck (principal); J44.1 Chronic obstructive pulmonary disease with (acute) exacerbation; C78.00 Secondary malignant neoplasm of unspecified lung; E11.9 Type 2 diabetes mellitus without complications; I11.0 Hypertensive heart disease with heart failure; F17.200 Nicotine dependence, unspecified, uncomplicated; E78.5 Hyperlipidemia, unspecified; I16.0 Hypertensive urgency; R73.9 Hyperglycemia, unspecified
CPT/HCPCS: 36415; 36600; 70491; 71045; 71260; 80048; 80053; 80061; 82803; 82962; 83036; 83880; 84443; 85025; 85610; 85730; 93005; J1815